=== PATIENT | male | born 1930 | race Caucasian/White ===

== ENCOUNTER → 2017-01-11 | Outpatient (CLI) | payer MEDICARE, OTHER ==
[~2017-01-11] MED LIST: ASPI1TAB57 PO; BALANCED SALT SOLN OPHT IRRIG 15 ML BTL LEFT EYE ONE; FINA5TAB2 PO; HYPROMELLOSE 0.3 % OPTH GEL 10 GM (0.34 FL OZ) TUBE ONE; LISI-515 PO; PHENYLEPHRINE HCL 2.5% OPTH SOLN 2 ML BTL ONE; PIOG30TA4 PO; PROPARACAINE HCL 0.5% OPHT SOLN 15 ML BTL ONE; TROPICAMIDE 1% OPHT SOLN 15 ML BTL ONE; VYTO10TA9 PO; XARE20TA PO
== END ==
LOC: PHSDC 09:56
PROVIDERS: ATTEND Ophthalmology
DX: H26.492 Other secondary cataract, left eye (principal); E11.36 Type 2 diabetes mellitus with diabetic cataract